=== PATIENT | female | born 1970 | race Caucasian/White ===

== ENCOUNTER 2019-02-17 21:15 | Emergency (ER) | payer OTHER ==
[~2019-02-17] VITALS: Ht 160 cm; Wt 115.7 kg
[2019-02-17] MEDS ORDERED: FURO40 PO (23:58)
[2019-02-17] MEDS ORDERED: POTCHL10ER (23:58)
[2019-02-17] MEDS ORDERED: ALBU90OI6 INH (23:59)
[2019-02-17] MEDS ORDERED: Norco 5-325 Ta1 EACH (23:59)
[2019-02-18] MEDS ORDERED: Prednisone20 MG PO (00:10)
[2019-02-18] MEDS ORDERED: LEVO750 PO (00:10)
== END 2019-02-18 00:19 | disposition home or self-care (01) ==
LOC: ER 21:15
DX: J44.1 Chronic obstructive pulmonary disease with (acute) exacerbation (principal); I11.0 Hypertensive heart disease with heart failure; I50.9 Heart failure, unspecified; Z79.899 Other long term (current) drug therapy; Z79.891 Long term (current) use of opiate analgesic
CPT/HCPCS: 71046; 99284-25; J7512

== ENCOUNTER 2019-04-16 23:01 | Emergency (ER) | payer OTHER ==
[~2019-04-16] VITALS: Ht 160 cm; Wt 114.8 kg
[~2019-04-16 23:01] MED LIST: ALBU90OI6 INH; FURO40 PO; LEVO750 PO; Norco 5-325 Ta1 EACH; POTCHL10ER; Prednisone20 MG PO
== END 2019-04-17 01:54 | disposition left against medical advice (07) ==
LOC: ER 23:01
DX: Z53.21 Procedure and treatment not carried out due to patient leaving prior to being seen by health care provider (principal); M54.9 Dorsalgia, unspecified

== ENCOUNTER 2021-02-13 17:37 | Inpatient (IN) | payer OTHER ==
[~2021-02-13] VITALS: Ht 160 cm; Wt 122.0 kg
[~2021-02-13 17:37] MED LIST changes: -POTCHL10ER; +POTCHL10ER PO
[2021-02-13 18:16] LABS: BASOPHILS ABSOLUTE AUTO 0.04 K/mm3 (0.00-0.23); BASOPHILS PERCENT AUTO 0 % (0-2); EOSINOPHILS ABSOLUTE AUTO 0.21 K/mm3 (0.00-0.68); EOSINOPHILS PERCENT AUTO 2 % (0-6); Hematocrit 40.2 % (33.0-51.0); Hemoglobin 13.7 g/dL (11.5-16.0); IMMATURE GRAN ABSOLUTE AUTO 0.03 K/mm3 (0.00-0.10); IMMATURE GRAN PERCENT AUTO 0 % (0-1); LYMPHOCYTES ABSOLUTE AUTO 2.47 K/mm3 (0.84-5.20); LYMPHOCYTES PERCENT AUTO 26 % (21-46); MONOCYTES ABSOLUTE AUTO 0.59 K/mm3 (0.16-1.47); MONOCYTES PERCENT AUTO 6 % (4-13); Mean Corpuscular HGB 33.3 pg (26.0-34.0); Mean Corpuscular HGB Conc 34.1 g/dL (31.5-36.5); Mean Corpuscular Volume 98 fL (80-100); Mean Platelet Volume 10.2 fL (9.1-12.4); NEUTROPHILS ABSOLUTE AUTO 6.33 K/mm3 (1.96-9.15); NEUTROPHILS PERCENT AUTO 66 % (41-73); Platelet Count 206 K/mm3 (150-400); RDW Coefficient Variation 13.5 % (11.7-14.2); RDW Standard Deviation 47.9 fL (35.1-46.3); Red Blood Cell Count 4.12 M/mm3 (3.80-5.20); White Blood Cell Count 9.67 K/mm3 (4.00-11.30)
[2021-02-13 18:42] LABS: Alanine Aminotransfer (ALT/SGP 33 U/L (12-78); Albumin, Blood 3.3 g/dL (3.4-5.0); Albumin/Globulin Ratio 0.8 (0.8-1.8); Alk Phos 96 U/L (50-136); Anion Gap 4 mmol/L (6-16); Aspartate Aminotrans (AST/SGOT 22 U/L (12-37); Bilirubin, Total 0.4 mg/dL (0.1-1.0); Blood Urea Nitrogen 7 mg/dL (8-24); Bun/Creatinine Ratio 9.8 (12.0-20.0); CO2, Blood 29 mmol/L (21-32); Calcium, Blood 8.4 mg/dL (8.5-10.1); Chloride, Blood 103 mmol/L (98-108); Creatinine, Blood 0.72 mg/dL (0.40-1.00); Globulin, Blood 3.9 g/dL (2.2-4.0); Glomerular Filtration Rate >60 (60-); Glucose, Blood 163 mg/dL (70-99); Potassium, Blood 3.8 mmol/L (3.5-5.5); Sodium, Blood 136 mmol/L (136-145); Total Protein, Blood 7.2 g/dL (6.4-8.2); Troponin I <0.015 ng/mL (0.000-0.040)
[2021-02-13] MEDS ORDERED: Aspir 8181 MG PO (20:20)
[2021-02-13] MEDS ORDERED: ALBU2.5V5 NEB (22:24)
[2021-02-13] MEDS ORDERED: FLUTICASONE-SA1 EAC9 INH (22:25)
--- NOTE | 2021-02-14 00:16 | NUR ---
PT REPORTS SHE HAS BEEN FITTED FOR A CPAP BUT DOES NOT WEAR IT D/T CONCERN THAT HER BODY WOULD BECOME DEPENDENT AND THEN UNABLE TO FUNCTION WITHOUT THE CPAP. EDUCATION PROVIDED, OFFERED RT SERVICES, PT DECLINED. PT REQUESTING ASSISTANCE TO FILL OUT DISABILITY PAPERWORK, STATES SHE HAS BEEN TRYING FOR DISABILITY FOR THE PAST 5 YEARS. PT VOICED MULTIPLE CONCERNS AND FEARS. STATES THAT WITHOUT HER AT THE BEDSIDE SHE WOULD NOT BE ABLE TO TOLERATE BEING IN THE HOSPITAL. CALL LIGHT IN REACH.
--- NOTE | 2021-02-14 05:23 | NUR ---
SHIFT SUMMARY: KATHE IS A&OX4. VSS, NO ACUTE EVENTS OVERNIGHT. SHE REMAINS NPO, IV TO L AC PATENT. SHE IS INDEPENDENT IN THE ROOM, ASSIST FOR IV POLE MANAGEMENT. SHE REPORTS GOOD PAIN CONTROL FROM THE DILAUDID, BUT DOES NOT LIKE THE SIDE EFFECTS AND PREFERS NOT TO HAVE THAT MEDICATION AGAIN. SHE IS ABLE TO MAKE HER NEEDS KNOWN. SHE IS LYING IN BED WITH THE CALL LIGHT IN REACH.
--- NOTE | 2021-02-14 06:20 | NUR ---
PT REQUIRED 4 L O2 DURING SLEEP TO MAINTAIN SATS >88%.
[2021-02-14 07:28] LABS: SARS-Cov-2 (COVID-19) PCR, MMC NEGATIVE (NEGATIVE)
--- NOTE | 2021-02-14 09:03 | NUR ---
0[address] DR RIOS AND DR LINK AT PT BEDSIDE DISCUSSING PLAN OF CARE, PT CONT TO HAVE LABORED BREATHING WITH BILAT. WHEEZE AFTER DUONEB IV LASIX 20MG GIVEN AFTER DISCUSSION BOTH AGREED ON HAVING A HOSPITALIST CONSULT PATIENT AND POSSIBLY RESCHEDULE SURGERY FOR TOMORROW. PT BACK TO ROOM 227 RN GIVEN REPORT URIN PREG ORDER PLACED AND IV ZOSYN 4.5GMS VERIFIED WITH DR ROIS TO START WHEN PT BACK IN ROOM
[2021-02-14 11:29] LABS: U Amphetamine Screen DETECTED; U Barbituate Screen Not Detected; U Benzodiazapine Screen Not Detected; U Buprenorphine Screen Not Detected; U Cannabinoids Screen Not Detected; U Cocaine Screen Not Detected; U Methadone Screen Not Detected; U Methamphetamine Screen DETECTED; U Opiates Screen Not Detected; U Oxycodone Screen Not Detected; U Phencyclidine Screen Not Detected; U Propoxyphene Screen Not Detected
--- NOTE | 2021-02-14 15:19 | NUR ---
SHIFT SUMMARY: CHOLECYSTITIS PATIENT IS ALERT AND ORIENTED X4 WHILE AWAKE. SHE HAS BEEN ASLEEP MOST OF THE SHIFT BUT IS AROUSABLE WITH TOUCH. VS ARE WNL AND IS ON RA. PATIENT DENIES PAIN AT THIS TIME. SHE IS TOLERATING PO INTAKE AND IS VOIDING. PATIENT IS A SBA TO ASSIST WITH IV POLE. SHE IS CURRENLY LAYING IN BED WITH AT BEDSIDE. CALL LIGHT WITHIN REACH. THE PLAN IS TO BE NPO AT MIDNIGHT AND WILL HAVE SURGERY TOMORROW.
[2021-02-15 03:43] LABS: BASOPHILS ABSOLUTE AUTO 0.01 K/mm3 (0.00-0.23); BASOPHILS PERCENT AUTO 0 % (0-2); EOSINOPHILS PERCENT AUTO 0 % (0-6); Hemoglobin 13.4 g/dL (11.5-16.0); IMMATURE GRAN ABSOLUTE AUTO 0.05 K/mm3 (0.00-0.10); IMMATURE GRAN PERCENT AUTO 1 % (0-1); LYMPHOCYTES ABSOLUTE AUTO 0.86 K/mm3 (0.84-5.20); LYMPHOCYTES PERCENT AUTO 8 % (21-46); MONOCYTES ABSOLUTE AUTO 0.24 K/mm3 (0.16-1.47); MONOCYTES PERCENT AUTO 2 % (4-13); Mean Corpuscular HGB Conc 32.7 g/dL (31.5-36.5); Mean Corpuscular Volume 98 fL (80-100); Mean Platelet Volume 10.4 fL (9.1-12.4); NEUTROPHILS ABSOLUTE AUTO 9.51 K/mm3 (1.96-9.15); NEUTROPHILS PERCENT AUTO 89 % (41-73); Platelet Count 182 K/mm3 (150-400); RDW Coefficient Variation 13.2 % (11.7-14.2); RDW Standard Deviation 47.5 fL (35.1-46.3); Red Blood Cell Count 4.19 M/mm3 (3.80-5.20); White Blood Cell Count 10.67 K/mm3 (4.00-11.30)
[2021-02-15 04:06] LABS: Alanine Aminotransfer (ALT/SGP 57 U/L (12-78); Albumin/Globulin Ratio 0.8 (0.8-1.8); Alk Phos 93 U/L (50-136); Anion Gap 3 mmol/L (6-16); Aspartate Aminotrans (AST/SGOT 41 U/L (12-37); Bilirubin, Total 0.4 mg/dL (0.1-1.0); Blood Urea Nitrogen 12 mg/dL (8-24); Bun/Creatinine Ratio 18.2 (12.0-20.0); CO2, Blood 28 mmol/L (21-32); Calcium, Blood 8.6 mg/dL (8.5-10.1); Chloride, Blood 103 mmol/L (98-108); Creatinine, Blood 0.66 mg/dL (0.40-1.00); Globulin, Blood 3.9 g/dL (2.2-4.0); Glomerular Filtration Rate >60 (60-); Glucose, Blood 317 mg/dL (70-99); Potassium, Blood 4.5 mmol/L (3.5-5.5); Sodium, Blood 134 mmol/L (136-145); Total Protein, Blood 6.9 g/dL (6.4-8.2)
--- NOTE | 2021-02-15 08:34 | NUR ---
SUMMARY PT PENDING OR TODAY.
--- NOTE | 2021-02-15 10:03 | NUR ---
PT TO OR AT THIS TIME, PT AWARE
--- NOTE | 2021-02-15 10:43 | NUR ---
02/15/21 1043 Cristian Rogers PT ON SCHEDULED ANTIBIOTICS. CONFIRMED WITH DR RIOS.
--- NOTE | 2021-02-15 13:27 | NUR ---
POST OP: REPORT RECEIVED FROM MARIO, MAT CUTTER. PT NOTIFIED. PT TO UNIT AT ABOUT 1330. PT IS DROWSY, BUT AWAKENS TO VOICE. VSS, OREINTED. SURGICAL SITES TO ABD CDI. WILL CTM.
--- NOTE | 2021-02-15 18:48 | NUR ---
SUMMARY: PT IS POD0 LAP AMANDA. PT HAS BEEN DROWSY POST OP, AWAKENS TO VOICE. ABLE TO AMBULATE TO BATHROOM AND VOID, BUT HAD A LOT OF PAIN. MEDICATED PER EMAR, MOBILITY ENCOURAGED TO PASS GAS. SURGICAL SITE WNL. PEDRO DRAIN EMPTIED X2, SEE RECORDED OUTPUT. PT SLEEPING NOW COMFORTABLY. AT BEDSIDE. WILL CTM AND REPORT TO NICANOR RN.
[2021-02-16 03:56] LABS: BASOPHILS ABSOLUTE AUTO 0.02 K/mm3 (0.00-0.23); BASOPHILS PERCENT AUTO 0 % (0-2); EOSINOPHILS PERCENT AUTO 0 % (0-6); Hematocrit 41.1 % (33.0-51.0); Hemoglobin 13.2 g/dL (11.5-16.0); IMMATURE GRAN ABSOLUTE AUTO 0.07 K/mm3 (0.00-0.10); IMMATURE GRAN PERCENT AUTO 0 % (0-1); LYMPHOCYTES ABSOLUTE AUTO 1.23 K/mm3 (0.84-5.20); LYMPHOCYTES PERCENT AUTO 8 % (21-46); MONOCYTES ABSOLUTE AUTO 0.63 K/mm3 (0.16-1.47); MONOCYTES PERCENT AUTO 4 % (4-13); Mean Corpuscular HGB 32.5 pg (26.0-34.0); Mean Corpuscular HGB Conc 32.1 g/dL (31.5-36.5); Mean Corpuscular Volume 101 fL (80-100); Mean Platelet Volume 10.5 fL (9.1-12.4); NEUTROPHILS ABSOLUTE AUTO 14.13 K/mm3 (1.96-9.15); NEUTROPHILS PERCENT AUTO 88 % (41-73); Platelet Count 194 K/mm3 (150-400); RDW Coefficient Variation 13.7 % (11.7-14.2); RDW Standard Deviation 50.7 fL (35.1-46.3); Red Blood Cell Count 4.06 M/mm3 (3.80-5.20); White Blood Cell Count 16.08 K/mm3 (4.00-11.30)
--- NOTE | 2021-02-16 08:00 | NUR ---
SUMMARY PT SLEPT MOST OF SHIFT. MED WITH DILAUDID X1 LAST NIGHT AND NORCO X 1 THIS AM IN HOPES OF ADEQUATE PAIN CONTROL WITHOUT MAKING PT SO SLEEPY.PEDRO DRNG GETTING DIRECTOR OF PARTNERSHIPS. PT TOLERATED CPAP PART OF SHIFT, BUT TRANSFERRED OVER TO N/C FOR COMFORT THIS AM.PT WITH STRONG COUGH PRODUCTIVE OF CREAMY SPUTUM. CONTINUES TO WHEEZE INTERMITTENTLY.DENIED SOB.
--- NOTE | 2021-02-16 12:55 | NUR ---
HTN: BP 164/99, TAKEN WHILE PT RESTING AND AFTER PAIN MED ADMINISTRATION. PT DENIES DIZZINESS. DR. NEVAREZ MADE AWARE, SEE NEW ORDERS.
--- NOTE | 2021-02-16 18:02 | NUR ---
SUMMARY: PT IS POD1 LAP AMANDA. PT DROWSY TODAY AND SLEPT THE MAJORITY OF TODAY. PT ENCOUARGED TO AMBULATE, AND UP TO CHAIR X2. REPORTED PAIN WITH MOVEMENT, OTHERWISE NO COMPLAINT. SURGICAL SITES WNL. 40 ML OF CHRISTIANE BLOOD FROM PEDRO. BP CONTINUES TO BE ELEVATED, DR. JACOBO AWARE, SEE NEW ORDER. WILL CTM AND REPORT TO NICANOR ECHEVARRIA.
[2021-02-17 04:41] LABS: BASOPHILS ABSOLUTE AUTO 0.03 K/mm3 (0.00-0.23); BASOPHILS PERCENT AUTO 0 % (0-2); EOSINOPHILS ABSOLUTE AUTO 0.05 K/mm3 (0.00-0.68); EOSINOPHILS PERCENT AUTO 0 % (0-6); Hematocrit 39.4 % (33.0-51.0); Hemoglobin 12.8 g/dL (11.5-16.0); IMMATURE GRAN ABSOLUTE AUTO 0.07 K/mm3 (0.00-0.10); IMMATURE GRAN PERCENT AUTO 1 % (0-1); LYMPHOCYTES PERCENT AUTO 29 % (21-46); MONOCYTES ABSOLUTE AUTO 0.95 K/mm3 (0.16-1.47); MONOCYTES PERCENT AUTO 7 % (4-13); Mean Corpuscular HGB 32.5 pg (26.0-34.0); Mean Corpuscular HGB Conc 32.5 g/dL (31.5-36.5); Mean Corpuscular Volume 100 fL (80-100); Mean Platelet Volume 10.2 fL (9.1-12.4); NEUTROPHILS ABSOLUTE AUTO 8.31 K/mm3 (1.96-9.15); NEUTROPHILS PERCENT AUTO 63 % (41-73); Platelet Count 182 K/mm3 (150-400); RDW Coefficient Variation 13.8 % (11.7-14.2); RDW Standard Deviation 50.9 fL (35.1-46.3); Red Blood Cell Count 3.94 M/mm3 (3.80-5.20); White Blood Cell Count 13.21 K/mm3 (4.00-11.30)
[2021-02-17 04:59] LABS: Anion Gap 2 mmol/L (6-16); Blood Urea Nitrogen 15 mg/dL (8-24); Bun/Creatinine Ratio 21.7 (12.0-20.0); CO2, Blood 31 mmol/L (21-32); Calcium, Blood 8.4 mg/dL (8.5-10.1); Chloride, Blood 104 mmol/L (98-108); Creatinine, Blood 0.69 mg/dL (0.40-1.00); Glomerular Filtration Rate >60 (60-); Glucose, Blood 226 mg/dL (70-99); Sodium, Blood 137 mmol/L (136-145)
--- NOTE | 2021-02-17 07:49 | NUR ---
SUMMARY POSSIBLE HOME TODAY? PO NORCO FOR PAIN. TOLERATING PO.
[2021-02-17] MEDS ORDERED: HYDR1TAB94 PO (11:11)
--- NOTE | 2021-02-17 11:53 | NUR ---
PEDRO DRAIN REMOVED BY DR. RIOS THIS AM. PER DR RIOS, PT IS CLEARED BY SURGERY TO DC HOME. HOWEVER, PT HAS NOT BEEN CLEARED BY HOSPITALIST TO DC HOME YET. DC PLANNING ALSO INVOLVED IN PT'S CASE.
--- NOTE | 2021-02-17 13:05 | NUR ---
PT RECENTLY TO IMAGING FOR CHEST X-RAY
--- NOTE | 2021-02-17 17:59 | NUR ---
SHIFT SUMMARY PT HAS BEEN A/O X4, 1X ASSIST IN ROOM. HAS HAD S/O AT BESIDE T/O THE DAY. PAIN MANAGED WITH PO PAIN MED PER ORDERS. PT HAD C-XRAY TODAY. TOLERATING PO INTAKE AND VOIDING. PT CBG OF 412 THIS EVENING AFTER EATING FOOD THAT S/O BROUGHT IN. DISCUSSED WITH PROVIDER, WHO ORDERED 12 UNITS OF HUMULIN FOR DOSE THIS EVENING AND STARTED LANTUS. PEDRO DRAIN WAS DC'D TODAY AND PT IS CLEARED BY SURGERY TO DC HOME. WAITING FOR HOSPITALIST TO CLEAR HER FOR DC. PT CONTINUES TO NEED 3-4 L O2 NC TO MAINTAIN O2 SAT ABOVE 92%.
--- NOTE | 2021-02-18 07:19 | NUR ---
A/OX4. SYSTOLIC BP IN AM >160, IV HYDRALAZINE GIVEN W/ GOOD EFFECT. OTHER VSS ON 3L. PT C/O NEW ONSET OF CHEST PAIN. HOSPITALIST NOTIFIED. EKG PERFORMED DEMONSTRATING NSR. TROPONIN COLLECTED AND PT PLACED ON TELE. ABDOMINAL PAIN MANAGED WELL W/ NORCO. NEW PIV PLACED. AMBULATED TO TOILET. SLEEPING B/W CARE.
--- NOTE | 2021-02-18 09:26 | NUR ---
PROVIDER INFORMED BY PT THAT PT WAS HAVING CHEST PRESSURE. NITRO AND ASPIRIN GIVEN, EKG COMPLETED, TROPONIN AND BNP COMPLETED WNL. LEFT MESSAGE WITH PROVIDER UPDATING ON THIS. PT STATED TO THIS RN THAT SHE FELT GASSY; PROVIDER NOTIFIED. PT ALSO SAID SHE HAD NOT HAD BM IN A FEW DAYS; BOWEL CARE STARTED. HOWEVER PT THEN HAD LARGE BM AND DECLINED STOOL SOFTENERS THIS AM. PT IS CURRENTLY RESTING IN BED WTIH 3L O2 NC, TELE, AND BIOX IN PLACE.
--- NOTE | 2021-02-18 10:14 | NUR ---
PT STATES SHE FEELS "A THOUSAND TIMES BETTER" AFTER HAVING LARGE BM. PT UP TO SHOWER AT THIS TIME.
--- NOTE | 2021-02-18 11:32 | NUR ---
PT HAD A SHOWER AROUND 10AM. SHE HAS WORKED WITH THERAPY AND WAS ABLE TO WALK ABOUT 90FT PER THERAPY. PT REVIEWING HAND-OUTS FROM DIETARY. SHE STATES SHE FEELS MUCH BETTER AFTER SHOWER AND IS DETERMINED TO DISCHARGE. PT HAS BEEN USING INCENTIVE SPIROMETER AND HAS BEEN ON RA WHILE AWAKE WITH 02 ABOVE 92%.
[2021-02-18] MEDS ORDERED: NITR.4SL SL (15:37)
[2021-02-18] MEDS ORDERED: ASPI81CH PO (15:38)
[2021-02-18] MEDS ORDERED: DOCU100 PO (15:38)
[2021-02-18] MEDS ORDERED: INSULANPEN SC (15:39)
[2021-02-18] MEDS ORDERED: SENN187 PO (15:39)
--- NOTE | 2021-02-18 16:45 | NUR ---
DISCHARGE PT A/O X4, IND IN ROOM. PT PASSED HOME O2 EVAL W/O NEED FOR O2. 'S CLEARED PT TO DISCHARGE. DC INSTRUCTIONS REVIEWED WITH PT AND S/O. BOTH REPORT UNDERSTANDING AND HAVE NO QUESTIONS OR CONCERNS. IV DC'D; NO OTHER IV'S IN PLACE. INSTRUCTIONS AND SCRIPT SENT WITH PT; OTHER SCRIPTS FAXED IN TO PHARMACY. PT HAS NOT NEEDED ANYTHING FOR PAIN TODAY. EXTRA SUPPLIES SENT WITH PT. PT HAVING BM'S AND VOIDING, TOLERATING PO INTAKE. DC'D AT 1645.
== END 2021-02-18 17:00 | disposition home or self-care (01) | DRG 418 ==
LOC: ER 17:37 → SURS 21:55
PROVIDERS: Internal Medicine; Nurse Practitioner Acute Care; Physician Assistant; ADMIT Surgery
PROC: 0FT44ZZ Resection of Gallbladder, Percutaneous Endoscopic Approach (ICD-10-PCS; principal; 2021-02-15 10:00)
DX: K80.00 Calculus of gallbladder with acute cholecystitis without obstruction (principal); I50.32 Chronic diastolic (congestive) heart failure; Z68.41 Body mass index [BMI] 40.0-44.9, adult; K42.9 Umbilical hernia without obstruction or gangrene; I11.0 Hypertensive heart disease with heart failure; E66.01 Morbid (severe) obesity due to excess calories; G47.33 Obstructive sleep apnea (adult) (pediatric); F15.10 Other stimulant abuse, uncomplicated; F17.210 Nicotine dependence, cigarettes, uncomplicated; J44.9 Chronic obstructive pulmonary disease, unspecified; R26.9 Unspecified abnormalities of gait and mobility; Z90.49 Acquired absence of other specified parts of digestive tract; Z79.82 Long term (current) use of aspirin; Z79.899 Other long term (current) drug therapy; Z91.19 Patient's noncompliance with other medical treatment and regimen; Z71.3 Dietary counseling and surveillance
CPT/HCPCS: 36415; 71045; 71046; 74177; 76705; 80048; 80053; 81025; 82947; 83036; 83605; 83690; 83880; 84484; 85025; 88304; 93005; 93010; 94640; 94660; 94761; 94762; 96374-59; 96375; 97116; 97162; 97530; 99285-25; A9270; C1729; G0378; J0360; J1100; J1170; J1815; J1885; J1940; J2405; J2543; J2704; J2930; J3010; J7030; J7050; J7120; J7512; Q9967; U0004

== ENCOUNTER 2021-03-03 23:47 | Emergency (ER) | payer OTHER ==
[~2021-03-03] VITALS: Ht 160 cm; Wt 122.5 kg
[~2021-03-03 23:47] MED LIST changes: +ALBU2.5V5 NEB; +ASPI81CH PO; +Aspir 8181 MG PO; +DOCU100 PO; +FLUTICASONE-SA1 EAC9 INH; +HYDR1TAB94 PO; +INSULANPEN SC; +NITR.4SL SL; +SENN187 PO
[2021-03-04] MEDS ORDERED: CYCL10 PO (02:19)
[2021-03-04] MEDS ORDERED: LIDO700A20 TOP (02:19)
== END 2021-03-04 02:44 | disposition home or self-care (01) ==
LOC: ER 23:47
DX: M54.31 Sciatica, right side (principal); I11.0 Hypertensive heart disease with heart failure; I50.9 Heart failure, unspecified; J44.9 Chronic obstructive pulmonary disease, unspecified; F17.210 Nicotine dependence, cigarettes, uncomplicated; Z79.82 Long term (current) use of aspirin; Z79.899 Other long term (current) drug therapy
CPT/HCPCS: 96372; 99283; A9270; J1885

== ENCOUNTER 2021-03-21 21:08 | Emergency (ER) | payer OTHER ==
[~2021-03-21] VITALS: Ht 160 cm; Wt 117.9 kg
[~2021-03-21 21:08] MED LIST changes: +CYCL10 PO; +LIDO700A20 TOP
== END 2021-03-22 01:10 | disposition home or self-care (01) ==
LOC: ER 21:08
DX: M46.1 Sacroiliitis, not elsewhere classified (principal)
CPT/HCPCS: 72170; 99283-25; A9270

== ENCOUNTER 2021-04-11 21:15 | Inpatient (IN) | payer OTHER ==
[~2021-04-11] VITALS: Ht 160 cm; Wt 117.6 kg
[2021-04-11 22:55] LABS: BASOPHILS ABSOLUTE AUTO 0.01 K/mm3 (0.00-0.23); BASOPHILS PERCENT AUTO 0 % (0-2); EOSINOPHILS ABSOLUTE AUTO 0.01 K/mm3 (0.00-0.68); EOSINOPHILS PERCENT AUTO 0 % (0-6); Hemoglobin 11.6 g/dL (11.5-16.0); IMMATURE GRAN ABSOLUTE AUTO 0.06 K/mm3 (0.00-0.10); IMMATURE GRAN PERCENT AUTO 1 % (0-1); LYMPHOCYTES ABSOLUTE AUTO 1.21 K/mm3 (0.84-5.20); LYMPHOCYTES PERCENT AUTO 19 % (21-46); MONOCYTES ABSOLUTE AUTO 0.43 K/mm3 (0.16-1.47); MONOCYTES PERCENT AUTO 7 % (4-13); Mean Corpuscular HGB 30.9 pg (26.0-34.0); Mean Corpuscular HGB Conc 33.1 g/dL (31.5-36.5); Mean Corpuscular Volume 93 fL (80-100); Mean Platelet Volume 10.3 fL (9.1-12.4); NEUTROPHILS ABSOLUTE AUTO 4.52 K/mm3 (1.96-9.15); NEUTROPHILS PERCENT AUTO 72 % (41-73); Platelet Count 214 K/mm3 (150-400); RDW Standard Deviation 51.5 fL (35.1-46.3); Red Blood Cell Count 3.75 M/mm3 (3.80-5.20); White Blood Cell Count 6.24 K/mm3 (4.00-11.30)
[2021-04-11 23:16] LABS: Alanine Aminotransfer (ALT/SGP 71 U/L (12-78); Albumin, Blood 2.3 g/dL (3.4-5.0); Albumin/Globulin Ratio 0.5 (0.8-1.8); Alk Phos 90 U/L (50-136); Anion Gap 3 mmol/L (6-16); Aspartate Aminotrans (AST/SGOT 67 U/L (12-37); Bilirubin, Total 0.4 mg/dL (0.1-1.0); Blood Urea Nitrogen 12 mg/dL (8-24); Bun/Creatinine Ratio 22.1 (12.0-20.0); CO2, Blood 33 mmol/L (21-32); Calcium, Blood 8.3 mg/dL (8.5-10.1); Chloride, Blood 96 mmol/L (98-108); Creatinine, Blood 0.54 mg/dL (0.40-1.00); Globulin, Blood 4.2 g/dL (2.2-4.0); Glomerular Filtration Rate >60 (60-); Glucose, Blood 267 mg/dL (70-99); Potassium, Blood 3.8 mmol/L (3.5-5.5); Sodium, Blood 132 mmol/L (136-145); Total Protein, Blood 6.5 g/dL (6.4-8.2); Troponin I <0.015 ng/mL (0.000-0.040)
[2021-04-11 23:43] LABS: SARS-Cov-2 (COVID-19) PCR, MMC POSITIVE (NEGATIVE)
[2021-04-12 06:14] LABS: BASOPHILS ABSOLUTE AUTO 0.01 K/mm3 (0.00-0.23); BASOPHILS PERCENT AUTO 0 % (0-2); EOSINOPHILS PERCENT AUTO 0 % (0-6); Hematocrit 32.8 % (33.0-51.0); Hemoglobin 10.7 g/dL (11.5-16.0); Mean Corpuscular HGB Conc 32.6 g/dL (31.5-36.5); Mean Corpuscular Volume 95 fL (80-100); Mean Platelet Volume 9.9 fL (9.1-12.4); Platelet Count 196 K/mm3 (150-400); RDW Coefficient Variation 15.1 % (11.7-14.2); RDW Standard Deviation 52.7 fL (35.1-46.3); Red Blood Cell Count 3.45 M/mm3 (3.80-5.20); White Blood Cell Count 6.18 K/mm3 (4.00-11.30)
[2021-04-12 06:21] LABS: IMMATURE GRAN ABSOLUTE AUTO 0.05 K/mm3 (0.00-0.10); IMMATURE GRAN PERCENT AUTO 1 % (0-1); LYMPHOCYTES ABSOLUTE AUTO 0.71 K/mm3 (0.84-5.20); LYMPHOCYTES PERCENT AUTO 12 % (21-46); MONOCYTES ABSOLUTE AUTO 0.45 K/mm3 (0.16-1.47); MONOCYTES PERCENT AUTO 7 % (4-13); NEUTROPHILS ABSOLUTE AUTO 4.96 K/mm3 (1.96-9.15); NEUTROPHILS PERCENT AUTO 80 % (41-73)
[2021-04-12 06:45] LABS: Alanine Aminotransfer (ALT/SGP 68 U/L (12-78); Albumin, Blood 2.2 g/dL (3.4-5.0); Albumin/Globulin Ratio 0.6 (0.8-1.8); Alk Phos 79 U/L (50-136); Anion Gap 4 mmol/L (6-16); Aspartate Aminotrans (AST/SGOT 56 U/L (12-37); Bilirubin, Total 0.3 mg/dL (0.1-1.0); Blood Urea Nitrogen 9 mg/dL (8-24); Bun/Creatinine Ratio 17.7 (12.0-20.0); CO2, Blood 32 mmol/L (21-32); Calcium, Blood 8.2 mg/dL (8.5-10.1); Chloride, Blood 98 mmol/L (98-108); Creatinine, Blood 0.51 mg/dL (0.40-1.00); Glomerular Filtration Rate >60 (60-); Glucose, Blood 248 mg/dL (70-99); Potassium, Blood 4.3 mmol/L (3.5-5.5); Sodium, Blood 134 mmol/L (136-145); Total Protein, Blood 6.2 g/dL (6.4-8.2)
--- NOTE | 2021-04-12 17:37 | NUR ---
SHIFT SUMMARY PT WAS ADMITTED THIS AFTERNOON WITH COVID PNA. PT IS ON AIRVO AND MAINTAINING SATURATION ABOVE 90% ON 75% AND 45L. PT WAS ABLE TO AMBULATED TO THE BSC WITH SBA, SHE DID DESATURATE BUT WAS ABLE TO RECOVER QUICKLY WITHOUT O2 ADJUSTMENT. PT IS ALERT AND ORIENTED BUT IS ANXIOUS. FAMILY HAS BEEN UPDATED REGARDING VISITING RESTRICTIONS, SPOUSE IS REPORTED ALSO BEING COVID POSITIVE AND HAS BEEN ENCOURAGED TO REMAIN HOME. PT IS RESTING IN BED HAVING DINNER AT THIS TIME
--- NOTE | 2021-04-12 20:00 | NUR ---
PT IS ALERT AND ORIENTED IN HIGH SEMI FOWLERS POSITION IN BED. PT DENIES HEADACHE, CHEST PAIN, NAUSEA, NUMBNESS OR TINGLING. PT REPORTS HER SOB, "MILD." PT DENIES ANY PAIN. PT IS MORBIDLY OBESE. PT CURRENTLY ON CPAP. CALL LIGHT WITHIN REACH. BED IN LOW POSITION. FLUIDS AT BEDSIDE.
--- NOTE | 2021-04-13 06:40 | NUR ---
SHIFT SUMMARY - PT HAD ONE EPISODE OF ANXIETY EARLIER IN THE SHIFT. SINCE THEN, NO FURTHER EPISODES OF ANXIETY. ATIVAN IV NOW ON PROFILE IF NEEDED. PT HAS BEEN SLEEPING FOR APPX 7-8 HOURS TONIGHT. CONTINUOUS BIOX ON. NO ACUTE CHANGES THIS SHIFT. FLUIDS AT BEDSIDE. BED IN LOW POSITION. CALL LIGHT WITHIN REACH - PT HAS BEEN APPROPRIATE WITH CALL LIGHT.
[2021-04-13 09:40] LABS: Anion Gap 1 mmol/L (6-16); Blood Urea Nitrogen 13 mg/dL (8-24); Bun/Creatinine Ratio 31.7 (12.0-20.0); CO2, Blood 33 mmol/L (21-32); Calcium, Blood 8.3 mg/dL (8.5-10.1); Chloride, Blood 102 mmol/L (98-108); Creatinine, Blood 0.41 mg/dL (0.40-1.00); Glomerular Filtration Rate >60 (60-); Glucose, Blood 176 mg/dL (70-99); Potassium, Blood 4.1 mmol/L (3.5-5.5); Sodium, Blood 136 mmol/L (136-145)
--- NOTE | 2021-04-13 18:53 | NUR ---
SHIFT SUMMARY PT HAS BEEN LETHARGIC TODAY BUT IS STILL ORIENTED WHEN SPOKEN TO. PT HAS MAINTAINED SATURATION ABOVE 92% WITH HIGH FLOW O2 THIS AFTERNOON. PT IS ABLE TO TRANSFER TO BSC WITH SBA BUT HAS NOT VOIDED SINCE LUNCH TIME TODAY, SHE HAS REFUSED WHEN OFFERED THE BATHROOM; VOLUNTEER SERVICES MANAGER IS BLADDER SCANNING PT AT THIS TIME AND NOC RN HAS BEEN MADE AWARE. PT HAS BEEN ALERT AND ORIENTED BUT IS LETHARGIC TODAY. VS STABLE, CBG HAS BEEN ELEVATED BUT WAS MEDICATED PER EMAR. PT IS RESTING IN BED AT THIS TIME.
--- NOTE | 2021-04-14 06:28 | NUR ---
ELECTROPHYSIOLOGY TECH SUMMARY PT HAS MAINTAINED O2 SATS >92% ON CPAP W 60% FIO2 ALL SHIFT. PT HAS DENIED ANY PAIN OR NAUSEA THIS SHIFT. BP IS STILL MODERATELY ELEVATED THIS SHIFT. PT GIVEN ATIVAN X1 THIS SHIFT FOR ANXIETY. PT IS AXO X4. WILL REPORT TO ONCOMING RN.
--- NOTE | 2021-04-14 17:48 | NUR ---
SHIFT SUMMARY; ASSUMED CARE AT 0700, REPORT FROM WALE MOORE. A/A/OX4 DURING SHIFT. AIR VO 65% 60L, UP TO CHAIR AT BEDSIDE FOR MEALS. REPOSITONS SELF IN BED NEEDED. SBA TO BSC. SATS 92-94%. DYSPNEA WITH EXERTION INSULIN COVERAGE PER EMAR. WILL CONTINUE TO MONITOR AND TREAT UNITL CHANGE OF SHIFT.
[2021-04-15 05:21] LABS: BASOPHILS ABSOLUTE AUTO 0.01 K/mm3 (0.00-0.23); BASOPHILS PERCENT AUTO 0 % (0-2); EOSINOPHILS ABSOLUTE AUTO 0.05 K/mm3 (0.00-0.68); EOSINOPHILS PERCENT AUTO 1 % (0-6); Hematocrit 34.5 % (33.0-51.0); Hemoglobin 11.3 g/dL (11.5-16.0); Mean Corpuscular HGB Conc 32.8 g/dL (31.5-36.5); Mean Corpuscular Volume 95 fL (80-100); NRBC ABSOLUTE 0.02 K/mm3 (0.00-0.02); NRBC Auto 0.3 /100 WBC (0.0-0.2); Platelet Count 329 K/mm3 (150-400); RDW Coefficient Variation 14.6 % (11.7-14.2); RDW Standard Deviation 51.3 fL (35.1-46.3); Red Blood Cell Count 3.65 M/mm3 (3.80-5.20); White Blood Cell Count 7.51 K/mm3 (4.00-11.30)
[2021-04-15 05:38] LABS: Anion Gap 3 mmol/L (6-16); Blood Urea Nitrogen 13 mg/dL (8-24); Bun/Creatinine Ratio 27.9 (12.0-20.0); CO2, Blood 31 mmol/L (21-32); Calcium, Blood 8.7 mg/dL (8.5-10.1); Chloride, Blood 103 mmol/L (98-108); Creatinine, Blood 0.47 mg/dL (0.40-1.00); Glomerular Filtration Rate >60 (60-); Glucose, Blood 156 mg/dL (70-99); Potassium, Blood 4.4 mmol/L (3.5-5.5); Sodium, Blood 137 mmol/L (136-145)
--- NOTE | 2021-04-15 05:48 | NUR ---
DOCUMENT IMAGING MANAGER SUMMARY PT HAS MAINTAINED O2 SATS >92% ON CPAP W 40% FIO2 THIS SHIFT. BP STILL MODERATELY ELEVATED BUT HAS SBP <160. PT HAS DENIED ANY PAIN OR NAUSEA THIS SHIFT. PT HAD ONE EPISODE OF INCONTINET URINE THIS SHIFT. PT SLEPT COMFORTABLY FOR MOST OF THE SHIFT. TELE SHOWING SR IN THE 90'S THIS SHIFT. WILL REPORT TO ONCOMING RN.
[2021-04-15 05:52] LABS: IMMATURE GRAN ABSOLUTE AUTO 0.06 K/mm3 (0.00-0.10); IMMATURE GRAN PERCENT AUTO 1 % (0-1); LYMPHOCYTES ABSOLUTE AUTO 1.72 K/mm3 (0.84-5.20); LYMPHOCYTES PERCENT AUTO 23 % (21-46); MONOCYTES ABSOLUTE AUTO 0.52 K/mm3 (0.16-1.47); MONOCYTES PERCENT AUTO 7 % (4-13); NEUTROPHILS ABSOLUTE AUTO 5.15 K/mm3 (1.96-9.15); NEUTROPHILS PERCENT AUTO 69 % (41-73)
--- NOTE | 2021-04-15 19:30 | NUR ---
PT FREQUENTLY MILDLY CONFUSED, REDIRECTABLE, AND SLIGHTLY ANXIOUS, PT AOX3, REPORTED PAIN WHEN IV FLUSHED, AND REQUESTED THAT NEW IV BE INSERTED IN LAC, PT INCONTINENT OF URINE AND UNAWARE, BED LINEN CHANGED, IV STARTED IN LAC AT 1800, PT CONTINENT OF STOOL AND HAD A LARGE FORMED BM, PT'S SBP'S IN 160'S, VERIFIED RESULT, DR. MELVIN CALLED AT 1822 AND MESSAGE LEFT, PT DENIES ADDITIONAL CONCERNS AT THIS TIME
[2021-04-16 04:10] LABS: BASOPHILS ABSOLUTE AUTO 0.01 K/mm3 (0.00-0.23); BASOPHILS PERCENT AUTO 0 % (0-2); EOSINOPHILS ABSOLUTE AUTO 0.08 K/mm3 (0.00-0.68); EOSINOPHILS PERCENT AUTO 1 % (0-6); Hematocrit 35.4 % (33.0-51.0); Hemoglobin 11.7 g/dL (11.5-16.0); Mean Corpuscular HGB 30.8 pg (26.0-34.0); Mean Corpuscular HGB Conc 33.1 g/dL (31.5-36.5); Mean Corpuscular Volume 93 fL (80-100); Mean Platelet Volume 9.7 fL (9.1-12.4); NRBC ABSOLUTE 0.02 K/mm3 (0.00-0.02); NRBC Auto 0.2 /100 WBC (0.0-0.2); Platelet Count 346 K/mm3 (150-400); RDW Coefficient Variation 14.5 % (11.7-14.2); RDW Standard Deviation 49.6 fL (35.1-46.3); White Blood Cell Count 8.46 K/mm3 (4.00-11.30)
[2021-04-16 04:12] LABS: IMMATURE GRAN ABSOLUTE AUTO 0.09 K/mm3 (0.00-0.10); IMMATURE GRAN PERCENT AUTO 1 % (0-1); LYMPHOCYTES ABSOLUTE AUTO 1.63 K/mm3 (0.84-5.20); LYMPHOCYTES PERCENT AUTO 19 % (21-46); MONOCYTES ABSOLUTE AUTO 0.64 K/mm3 (0.16-1.47); MONOCYTES PERCENT AUTO 8 % (4-13); NEUTROPHILS ABSOLUTE AUTO 6.01 K/mm3 (1.96-9.15); NEUTROPHILS PERCENT AUTO 71 % (41-73)
[2021-04-16 04:39] LABS: Anion Gap 3 mmol/L (6-16); Blood Urea Nitrogen 11 mg/dL (8-24); CO2, Blood 30 mmol/L (21-32); Calcium, Blood 8.9 mg/dL (8.5-10.1); Chloride, Blood 103 mmol/L (98-108); Creatinine, Blood 0.46 mg/dL (0.40-1.00); Glomerular Filtration Rate >60 (60-); Glucose, Blood 192 mg/dL (70-99); Potassium, Blood 4.5 mmol/L (3.5-5.5); Sodium, Blood 136 mmol/L (136-145)
--- NOTE | 2021-04-16 05:31 | NUR ---
shift summary pt slept through most of night. alert and oriented, able to make needs known. cooperative with plan of care. sats >90% on airvo, 50l @55% fio2. pt does tend to remove airvo prongs when sleeping, will desat to low 80%'s. tele nsr 90's-100's. denies chest pain and palpitations. stress incontinence - attends in place, but will call when needs to use bedside commode, no bm. 1 person assist to transfer to commode. no c/o pain. vss. call light within reach, bed in lowest position. will continue to monitor.
--- NOTE | 2021-04-16 18:31 | NUR ---
SHIFT SUMMARY PT HAS BEEN SBA THROUGHOUT THE DAY. PT IS ON AIRVO BUT WE HAVE BEEN ABLE TO TITRATE DOWN. PT IS ALERT AND ORIENTED. PT'S CBG HAVE BEEN ELEVATED AND TREATED PER EMAR. PT IS RESTING IN BED AT THIS TIME
[2021-04-17 04:47] LABS: BASOPHILS ABSOLUTE AUTO 0.02 K/mm3 (0.00-0.23); BASOPHILS PERCENT AUTO 0 % (0-2); EOSINOPHILS ABSOLUTE AUTO 0.22 K/mm3 (0.00-0.68); EOSINOPHILS PERCENT AUTO 2 % (0-6); Hematocrit 35.7 % (33.0-51.0); Hemoglobin 11.7 g/dL (11.5-16.0); IMMATURE GRAN ABSOLUTE AUTO 0.12 K/mm3 (0.00-0.10); IMMATURE GRAN PERCENT AUTO 1 % (0-1); LYMPHOCYTES ABSOLUTE AUTO 2.02 K/mm3 (0.84-5.20); LYMPHOCYTES PERCENT AUTO 20 % (21-46); MONOCYTES PERCENT AUTO 8 % (4-13); Mean Corpuscular HGB 30.7 pg (26.0-34.0); Mean Corpuscular HGB Conc 32.8 g/dL (31.5-36.5); Mean Corpuscular Volume 94 fL (80-100); Mean Platelet Volume 9.9 fL (9.1-12.4); NEUTROPHILS ABSOLUTE AUTO 7.19 K/mm3 (1.96-9.15); NEUTROPHILS PERCENT AUTO 69 % (41-73); Platelet Count 368 K/mm3 (150-400); RDW Coefficient Variation 14.6 % (11.7-14.2); RDW Standard Deviation 50.1 fL (35.1-46.3); Red Blood Cell Count 3.81 M/mm3 (3.80-5.20); White Blood Cell Count 10.37 K/mm3 (4.00-11.30)
[2021-04-17 05:08] LABS: Anion Gap 4 mmol/L (6-16); Blood Urea Nitrogen 13 mg/dL (8-24); CO2, Blood 27 mmol/L (21-32); Chloride, Blood 104 mmol/L (98-108); Glomerular Filtration Rate >60 (60-); Glucose, Blood 167 mg/dL (70-99); Potassium, Blood 4.6 mmol/L (3.5-5.5); Sodium, Blood 135 mmol/L (136-145)
--- NOTE | 2021-04-17 05:41 | NUR ---
shift summary pt rested some through the night. alert and oriented, able to make needs known. cooperative with plan of care. tele - nsr/sinus tach, rate ranging from 80-100's. sba to commode to void, does have some noted incontinence, but is able to call sometimes when she needs to urinate. no bm. no c/o pain. sats >90% when on airvo and cpap. maintains better sats on cpap than on airvo. vss. call light within reach, bed in lowest position. will continue to monitor.
--- NOTE | 2021-04-17 08:15 | NUR ---
INITIAL ASSESSMENT: PCT PLACED BREAKFAST TRAY AT BEDSIDE AND INSTRUCTED PATIENT THIS RN WOULD BE IN TO SWITCH HER OVER TO HER HIGH FLOW NC. AFTER THE PCT LEFT THE ROOM THE PATIENT PULLED HER C-PAP OFF AND BEGAN TO EAT BREAKFAST ON RA. BIOX DROPPED DOWN TO THE HIGH 80S. THIS RN WAS ABLE TO MAKE IT IN THE ROOM AND SWITCH THE MODE TO HIGH FLOW AND ASSIST THE PATIENT TO PUT IT ON. INSTRUCTED THE PATIENT TO WAIT FOR STAFF AND NOT PULL HER MASK OFF. PATIENT IS ALERT AND ORIENTED. SHE DENIES PAIN AT THIS TIME. HRR, ST 115-120, PO METOPRLOL GIVEN. LS DIM WITH SOME EXPIRATORY WHEEZING NOTED, PT IS [place] AT REST. BT+. PPP. VSS. AM MEDS GIVEN WITH A SIP OF WATER. PT ASSISTED TO THE BSC WITH SBA, STEADY GAIT. PT ASSISTED BACK TO BED. SHE DENIES OTHER NEEDS AT THIS TIME. CALL LIGHT IN REACH. PETRA CONTINUE TO MONITOR.
--- NOTE | 2021-04-17 09:00 | NUR ---
REPORT GIVEN TO TERESA ECHEVARRIA TO ASSUME CARE.
--- NOTE | 2021-04-17 09:49 | NUR ---
[place] of care Received report from chargemaster specialist. Pt is resting in her room sitting up in bed watching TV. Pt remians on airvo @ 50 L. She has been in NSR. Pt is able to make her needs known but does need reminders to use the call light.
--- NOTE | 2021-04-17 17:07 | NUR ---
Shift Summary Pt is a/o x 3 and has no complaints of pain. She has been inc although she is able to get up to the BSC with line management. She remains on 10L via AIRVO and has O2 sats in the 90's. Blood sugars have been covered with sliding scale as ordered. Pt is resting in bed watching TV. She has her call light in reach and is able to make her needs known.
--- NOTE | 2021-04-18 06:11 | NUR ---
SHIFT SUMMARY PATIENT FOUND TO BE AN ANXIOUS, TEARFUL LADY WHO IS A&OX4, WITH SOME GENERALIZED WEAKNESS. TEARFUL AND WANTING TO GO HOME AT SHIFT CHANGE. THERAPEUTIC COMMUNICATION AND EDUCATION ON OXYGEN NEEDS PROVIDED. REFUSED IV ATIVAN. SR-LOW SINUS TACHY ON THE MONITOR. VSS. ON AIRVO 40L, 50% SATING LOW 90'S ALL NIGHT. RECOVERS QUICKLY AFTER ACTIVITY. TACHYPENIC AT TIMES. LAYING SIDE TO SIDE ALL NIGHT EDUCATED AND IS NOT TOLERATING PRONING. NOT COMPLIANT WITH ADA DIET AND BEGGED FOR SNACKS UNTIL GIVEN. NEEDS SOME DIABETIC EDUCATION. VOIDING WELL PER BSC WITH ONE PERSON ASSIST. NO PAIN OR DISTRESS NOTED UPON ASSESSMENT. NO ACUTE CONCERNS AT THIS TIME. WILL CONTINUE TO MONITOR UNTIL REPORT GIVEN TO MATTY RN.
--- NOTE | 2021-04-18 09:46 | NUR ---
pt sitting up in a chair, she is a/ox3, has some anxiety, but also seems to not understand her illness or dm, asked her how long she has been a diabetic, she said it's all new to her, but asked what her a1c is, also states she is suppose to check her glucose every evening, but didn't have the monitor, seems a little off, lungs have an ep wheeze in upper truong, dim in bases, currently on airvo, sats 89 to 91%, denies feeling sob, occ prod cough of yellow sputum, hrr, tele in place running sr per monitor see strip, no edema noted, ppp+1, cap refill <3sec, vs stable, afebrile, iv site is clear and patent, btx4, abd flat soft nontender, voids without diff, skin c/w/d, coccyx is pink, maew, tarun, call light in reach.
--- NOTE | 2021-04-18 18:46 | NUR ---
pt has been up to the chair for meals, sleeping when left undisturbed, no acute changes, is talking about going home tomorrow, spoke to her about this. no acute changes this shift. call light in reach.
--- NOTE | 2021-04-18 19:50 | NUR ---
ASSUMPTION OF CARE PT IS SITTING UP IN BED. UPON ENTERING THE ROOM PT REQUESTED "SNACKS AND SOME SWEET STUFF", I EXPLAINED TO THE PT HOW THAT REQUEST WOULD AFFECT BLOOD GLUCOSE. PT EXPRESSED INTEREST IN CURRENT O2 SETTINGS AND DESIRE TO REDUCE OXYGEN DEMAND. NO ACUTE CHANGES NOTED AT THIS TIME.
[2021-04-19 04:03] LABS: BASOPHILS ABSOLUTE AUTO 0.03 K/mm3 (0.00-0.23); BASOPHILS PERCENT AUTO 0 % (0-2); EOSINOPHILS ABSOLUTE AUTO 0.12 K/mm3 (0.00-0.68); EOSINOPHILS PERCENT AUTO 1 % (0-6); Hematocrit 34.7 % (33.0-51.0); Hemoglobin 11.3 g/dL (11.5-16.0); IMMATURE GRAN PERCENT AUTO 1 % (0-1); LYMPHOCYTES ABSOLUTE AUTO 1.99 K/mm3 (0.84-5.20); LYMPHOCYTES PERCENT AUTO 23 % (21-46); MONOCYTES ABSOLUTE AUTO 0.74 K/mm3 (0.16-1.47); MONOCYTES PERCENT AUTO 9 % (4-13); Mean Corpuscular HGB Conc 32.6 g/dL (31.5-36.5); Mean Corpuscular Volume 95 fL (80-100); NEUTROPHILS ABSOLUTE AUTO 5.68 K/mm3 (1.96-9.15); NEUTROPHILS PERCENT AUTO 66 % (41-73); Platelet Count 339 K/mm3 (150-400); RDW Coefficient Variation 14.4 % (11.7-14.2); RDW Standard Deviation 49.6 fL (35.1-46.3); Red Blood Cell Count 3.65 M/mm3 (3.80-5.20); White Blood Cell Count 8.66 K/mm3 (4.00-11.30)
--- NOTE | 2021-04-19 04:12 | NUR ---
SHIFT SUMMARY PT HAS BEEN PREOCCUPIED WITH SNACKS, CALLED MULTIPLE TIMES THROUGHOUT NIGHT AND REQUESTS SNACKS EACH TIME SOMEONE ENTERS THE ROOM. PT APPEARS MODERATELY ANXIOUS, UNABLE TO REST. REST HAS BEEN ENCOURAGED, DISTRACTIONS LIMITED, LIGHTS TURNED OUT. O2 SATS HAVE REMAINED CONSISTENTLY >90%. BLOOD GLUCOSE WAS 326 AT HS PRIOR TO INSULIN GLARGINE ADMINISTRATION PER NOV. NO OTHER ACUTE CHANGES NOTED.
[2021-04-19 04:19] LABS: Anion Gap 5 mmol/L (6-16); Blood Urea Nitrogen 11 mg/dL (8-24); Bun/Creatinine Ratio 21.6 (12.0-20.0); CO2, Blood 30 mmol/L (21-32); Chloride, Blood 101 mmol/L (98-108); Creatinine, Blood 0.51 mg/dL (0.40-1.00); Glomerular Filtration Rate >60 (60-); Glucose, Blood 144 mg/dL (70-99); Potassium, Blood 4.6 mmol/L (3.5-5.5); Sodium, Blood 136 mmol/L (136-145)
--- NOTE | 2021-04-19 08:00 | NUR ---
pt laying in bed awake watching tv, a/ox3, pleasant and cooperative with care, follows commands well, denies pain, lungs have exp wheezing in the upper truong, dim in bases, is currently on airvo, sats are maintaining in the 93 range, no cough noted, hrr, tele in place running sr per monitor, see strip, trace edema noted to b/l le, ppp+2, cap refill <3sec, vs stable, afebrile, iv site is clear and patent btx4, abd flat soft nontender, voids with out diff, skin c/w/d, maew, tarun, call light in reach.
--- NOTE | 2021-04-19 18:36 | NUR ---
pt had some incont on the floor, bed was changed and she had a bed bath, she expressed that she doesn't know anything about dm, so spent a bit speaking to her about managing it, also gave her some printed education. she is on a cannula at this time, no further changes this shift, call light in reach.
--- NOTE | 2021-04-20 05:11 | NUR ---
SHIFT SUMMARY PT HAS SLEPT FOR THE MAJORITY OF THE NIGHT, EASILY AROUSED BY VOICE. OXYGEN SATURATION CONSISTENTLY >90% ON 45 L HIGH FLOW NC. PT REGULARLY REPOSITIONED SELF THROUGHOUT THE NIGHT. NO ACUTE CHANGES THIS SHIFT. CALL LIGHT AND PERSONAL BELONGINGS WITHIN REACH.
--- NOTE | 2021-04-20 11:18 | NUR ---
INITIAL ASSESSMENT: ASSUMED CARE OF PATIENT 04/20/2021 AT 0720. PATIENT WAS CURRENTLY ON 9L VIA NC, WHICH WAS A CHANGE OVERNIGHT FROM THE AIRVO. STATUS IS IMPROVING. MENTATION SEEMS TO BE IMPROVING. RIGHT FOREARM, IV NEEDS TO BE DISCONTINUED, AND A NEW IV PLACED. EDUCATION OF DM, INCENTIVE SPIROMETRY EDUCATION. PROVIDER AND RT AGREE TITTRATE O2 TO KEEP SP02>88 AND AND INFORM WHEN 2-3 L AND INFORM PROVIDER.
--- NOTE | 2021-04-20 17:46 | NUR ---
SHIFT SUMMARY: ASSUMED CARE OF PATIENT ON 04/20/2021 AT 0730. PATIENT WAS SATURATING ON 9L VIA NC AND IS NOW ON 4L 02 VIA NC. PATIENT HAS AN INCREASED APPETITE IS AGREEABLE TO LEARNING. PATIENT DID ENDORSE SOME CONGESTION BUT HAS NOT BEEN COUGHING OFTEN, OR HAD ANY SPUTUM OF MEASURE. PATIENT WAS FREQUENTLY REPOSITIONED FROM BED TO CHAIR, PATIENT HAS BEEN A STANDBY ASSIST. PATIENT HAD NEW FOUND WOUND ON 04/20/2021 FROM THE NIGHT WHEN HELPING WITH CARE BY PREVIOUS RN. DOCUMENTS/PHOTOS ARE IN THE HARD COPY CHART, WELL I PLACED THE DOCUMENTATION OF THE WOUND WITHIN MY ASSESSMENT. PATIENT HAS BEEN SR FROM 80'S TO 90'S WITH A SHORT PERIOD OF BEING 100'S-110'S FOR ABOUT 4 HOURS DURING THE AFTERNOON. PATIENT WAS MOVING AND CHANGING POSITIONS FROM BED AND BSC AND THE RECLINER FREQUENTLY DURING THIS PERIOD. DENIES ANY CHEST PAIN UPDATED SPOUSE LEONA PER PATIENT REQUEST AND HE IS ON CHART TO UPDATE, DURING THE SHIFT. WILL CONTINUE TO CARE FOR PATIENT UNTIL SHIFT CHANGE.
[2021-04-21 04:20] LABS: Anion Gap 5 mmol/L (6-16); Blood Urea Nitrogen 12 mg/dL (8-24); Bun/Creatinine Ratio 25.1 (12.0-20.0); CO2, Blood 30 mmol/L (21-32); Chloride, Blood 101 mmol/L (98-108); Creatinine, Blood 0.48 mg/dL (0.40-1.00); Glomerular Filtration Rate >60 (60-); Glucose, Blood 168 mg/dL (70-99); Potassium, Blood 4.5 mmol/L (3.5-5.5); Sodium, Blood 136 mmol/L (136-145)
[2021-04-21] MEDS ORDERED: DEXA2 PO (16:36)
[2021-04-21] MEDS ORDERED: METF500 PO (16:38)
--- NOTE | 2021-04-21 18:08 | NUR ---
DISCHARGE SUMMARY: PATIENT HAD EVALUATION FROM HOSPITALIST, PT/OT, O2 EVAL AND ADALI GAVE O2. PATIENT DENIES CHEST PAIN OR PRESSURE. LISTEN TO LUNGS AND HEART SOUNDS, NO CHANGE FROM ASSESSMENT. PATIENT WAS EXCITED TO LEAVE, HELPED WITH PATIENT AMBULATORY SERVICES REPRESENTATIVE MELIDA Leo VIA WHEELCHAIR, ALL DISCHARGE INSTRUCTIONS, MED LIST, NEEDS, QUESTIONS WERE COMPLETELY UNDERSTOOD AT TIME OF DISCHARGE. HELPED PATIENT INTO SPOUSE [employer] VEHICLE WITH NO ISSUES. PATEINT HAD NO FURTHER QUESTIONS COMMENTS OR CONCERNS.
== END 2021-04-21 17:16 | disposition home or self-care (01) | DRG 177 ==
LOC: ER 21:15 → ERHOLD 04-12 01:24 → PCU 04-12 13:58
PROVIDERS: Emergency Medicine; Family Medicine; ADMIT Internal Medicine
PROC: 5A09357 Assistance with Respiratory Ventilation, Less than 24 Consecutive Hours, Continuous Positive Airway Pressure (ICD-10-PCS; principal; 2021-04-12)
PROC: 8E0ZXY6 Isolation (ICD-10-PCS; 2021-04-12)
PROC: 3E0333Z Introduction of Anti-inflammatory into Peripheral Vein, Percutaneous Approach (ICD-10-PCS; 2021-04-12)
PROC: XW033E5 Introduction of Remdesivir Anti-infective into Peripheral Vein, Percutaneous Approach, New Technology Group 5 (ICD-10-PCS; 2021-04-12)
PROC: 5A0935A Assistance with Respiratory Ventilation, Less than 24 Consecutive Hours, High Flow/Velocity Cannula (ICD-10-PCS; 2021-04-12)
DX: U07.1 COVID-19 (principal); J12.82 Pneumonia due to coronavirus disease 2019; J96.01 Acute respiratory failure with hypoxia; J44.0 Chronic obstructive pulmonary disease with (acute) lower respiratory infection; Z68.42 Body mass index [BMI] 45.0-49.9, adult; J44.1 Chronic obstructive pulmonary disease with (acute) exacerbation; I50.32 Chronic diastolic (congestive) heart failure; E11.9 Type 2 diabetes mellitus without complications; I11.0 Hypertensive heart disease with heart failure; G47.30 Sleep apnea, unspecified; E66.9 Obesity, unspecified; F17.210 Nicotine dependence, cigarettes, uncomplicated; Z90.49 Acquired absence of other specified parts of digestive tract; Z79.899 Other long term (current) drug therapy
CPT/HCPCS: 36415; 71045; 80048; 80053; 82947; 83880; 84484; 85025; 93005; 93010; 94640; 94644; 94645; 94660; 94761; 94762; 96372; 96374; 96375; 97110; 97162; 97166; 97535; 99285-25; A9270; J1100; J1650; J2060; J7050; U0004